=== PATIENT | male | born 1970 | race Caucasian/White ===

== ENCOUNTER → 2016-08-06 | Outpatient (CLI) | payer BC ==
--- NOTE | 2016-08-07 11:58 | RADRPT ---
PROCEDURE: XR Bilateral Shoulder. CLINICAL INDICATION: Bilateral shoulder pain. TECHNIQUE: 4 views of each shoulder for a total of 8 views. Frontal internal rotation, frontal ex ternal rotation, axillary, and scapular Y-view. In addition, the bilateral acromioclavicular joint i mages were obtained with frontal views of the bilateral AC joints. COMPARISON: No prior study is available for comparison. FINDINGS: There is no fracture or dislocation. The soft tissues are normal. Articular surfaces are intact. The glenohumeral joints and acromioclavicular joints are normal bilat erally. There is no lytic or blastic lesion. There is no radiopaque foreign body. IMPRESSION: 1. Normal images of both shoulders. 2. Normal images of both acromioclavicular joints. RPTAT: QQ .Portillo Olivo MD, Date Time Electronically viewed and signed by .Portillo Olivo MD, on 08/07/2016 11:57 .R/
== END | disposition home or self-care (01) ==
LOC: RAD 15:48
PROVIDERS: ATTEND Family Medicine Sports Medicine
DX: M25.512 Pain in left shoulder (principal); M25.511 Pain in right shoulder

== ENCOUNTER → 2018-04-06 | Outpatient (CLI) | END | disposition home or self-care (01) ==

== ENCOUNTER → 2018-12-27 | Outpatient (CLI) | payer BC ==
[~2018-12-27] MED LIST: DIAZ5TAB PO; ESCI20TA PO; HYDR-3980 PO; IBUP800T48 PO
== END | disposition home or self-care (01) ==
LOC: LAB 09:23
PROVIDERS: ATTEND Internal Medicine Cardiovascular Disease
DX: E78.5 Hyperlipidemia, unspecified (principal)
CPT/HCPCS: 80053; 80061; 81003; 82652; 82670; 83036; 83090; 83735; 84403; 84439; 84443; 84481; 85025; 86140; 87086

== ENCOUNTER → 2018-12-28 | Outpatient (CLI) | payer BC ==
--- NOTE | 2018-12-30 16:05 | RADRPT ---
Echocardiogram Report Patient Name: Wallace MARIEent ID: [id number] : 1970 (48y 2m)Study Date: 12/28/2018 10:25:35 AM Gender: MAccession #: [id number] Tech: Destiny King RDCS Location: EKG Ref.Physician: LLOYD HOLLIDAY Height(Cm): BSA: Weight(Kg): Quality: AdequateOrder Physician: LLOYD HOLLIDAY Account #: Procedures: Echocardiographic Report: Transthoracic echocardiogram with complete 2D, M-Mode, and doppler examination. Indications: Hyperlipidemia. Measurements: 2D/M Mode Doppler Measurement Value Normal Range Measurement Value Normal Range LVIDd 2D 4.6 [ 4.2 - 5.8 ] cm AV Peak Adalid 1.3 [ 100.0 - 170.0 ] cm/sec LVIDs 2D 2.5 [ 2.5 - 4.0 ] cm AV Peak PG 7.0 [ 2.0 - 9.0 ] mmHg LVPWd 2D 0.9 [ 0.6 - 1.0 ] cm LVOT Peak Adalid 0.9 [ 70.0 - 110.0 ] cm/sec IVSd 2D 0.9 [ 0.6 - 1.0 ] cm LVOT Peak PG 4.0 [ 2.0 - 6.0 ] mmHg AoR Diam 2D 3.0 [ 2.6 - 3.4 ] cm MV E Peak Adalid 0.7 [ 60.0 - 130.0 ] cm/sec EDV 2D 97.8 [ 62.0 - 150.0 ] ml MV A Peak Adalid 0.5 [ 100.0 - 120.0 ] cm/sec ESV 2D 23.0 [ 21.0 - 61.0 ] ml MV E/A 1.4 [ 0.8 - 1.5 ] ratio EF 2D 76.5 [ 52.0 - 72.0 ] percent MV Decel Time 190 [ 104 - 258 ] msec LA Dimen 2D 3.3 [ 3.0 - 4.0 ] cm Lat E` Adalid 0.1 [ 10.0 - 15.0 ] cm/sec Lateral E/E` 8.3 [ 1.0 - 2.0 ] ratio Med E` Adalid 0.1 cm/sec MV E/A 1.4 [ 0.8 - 1.5 ] ratio TR Peak Adalid 2.8 [ 100.0 - 280.0 ] cm/sec TR Peak PG 31.0 mmHg RVSP 34.0 [ 10.0 - 36.0 ] mmHg RA Pressure 3.0 mmHg Findings: Left Ventricle: Normal left ventricular systolic function. Normal left ventricular cavity size. Normal left ventricular wall thickness. Ejection fraction is visually estimated at 65 %. Tissue Doppler/Mitral Doppler indices are within normal limits. Right Ventricle: Normal right ventricular size. Normal right ventricular systolic function. Left Atrium: The left atrium is normal in size. Right Atrium: The right atrium is normal in size. Mitral Valve: Normal appearance and function of the mitral valve with trace physiologic regurgitation. Aortic Valve: Normal appearance of the aortic valve. No significant aortic stenosis or insufficiency. Tricuspid Valve: Normal appearance of the tricuspid valve. The estimated Peak RVSP is 34 mmHg. There is trace tricuspid regurgitation. Pulmonic Valve: Normal pulmonic valve appearance. Pericardium: Normal pericardium with no significant pericardial effusion. Aorta: Normal aortic root. IVC: Normal size and normal respiratory collapse consistent with normal right atrial pressure. Conclusions: Normal left ventricular systolic function. Normal left ventricular cavity size. Normal left ventricular wall thickness. Ejection fraction is visually estimated at 65 %. Tissue Doppler/Mitral Doppler indices are within normal limits. Normal right ventricular size. Normal right ventricular systolic function. No significant valvular stenosis or regurgitation seen. Normal pericardium with no significant pericardial effusion. Electronically Signed By: Lloyd Holliday 2018-12-30 16:04:18 PDT
--- NOTE | 2018-12-30 16:19 | RADRPT ---
Stress Test Report Patient Name: Alfonso MARIE ID: [id number] : 1970 (48y 2m)Study Date: 12/28/2018 10:46:49 AM Gender: MAccession #: [id number] Tech: Aurora Foley [facility] Location: EKG Ref.Physician: LLOYD HOLLIDAY Height(Cm): BSA: Weight(Kg): Quality: AdequateAccount #: Procedures: Stress Echo Report: Treadmill stress echocardiogram. Indications: Hyperlipidemia. Findings: Stress Data: Peak HR: 160. Predicted Maximal HR - 172. Percent predicted max HR achieved - 93 %. Resting Echo Findings: Normal left ventricular size and systolic function with normal wall thickness at rest. Resting ECG: Normal EKG. Exercise Stress LV Function: Normal hyperdynamic contractile response with no inducible ischemia. Exercise ECG: Normal post exercise ECG. Reason for Termination: Maximal Predicted HR achieved. Functional Capacity: Above average exercise functional capacity. Blood Pressure Response: Normal blood pressure response. Arrhythmia: Frequent isolated premature ventricular contraction. Conclusions: Peak HR: 160. Predicted Maximal HR - 172. Percent predicted max HR achieved - 93 %. 11 min, 2 seconds Rickie protocol. Normal post exercise ECG. No Echocardiographic evidence of ischemia. Fequent PVC's at rest and in recovery. Electronically Signed By: Lloyd Holliday 2018-12-30 16:18:48 PDT
== END | disposition home or self-care (01) ==
LOC: NUC 09:06
PROVIDERS: ATTEND Internal Medicine Cardiovascular Disease
DX: E78.5 Hyperlipidemia, unspecified (principal)
CPT/HCPCS: 93306; 93350

== ENCOUNTER → 2019-01-17 | Outpatient (CLI) | payer BC | END | disposition home or self-care (01) | LOC: LAB 13:09 | PROVIDERS: ATTEND Internal Medicine Cardiovascular Disease | DX: R53.83 Other fatigue (principal) | CPT/HCPCS: 84153; 84154; 86800 ==